=== PATIENT | male | born 1950 | race Caucasian/White ===

== ENCOUNTER 2018-02-20 10:22 | Emergency (ER) | payer OTHER ==
[~2018-02-20] VITALS: Ht 180.3 cm; Wt 79.4 kg
[~2018-02-20 10:22] MED LIST: ACTOS 30 MG TAB30 MG PO; AMBIEN 10 MG TA10 MG PO; ANDROGEL; CYMBALTA60 MG; CYTOMEL 25 MCG25 MCG; GLUCOPHAGE1000 MG PO; GLUCOTROL; HYDROCHLOROTHIA25 M1; LANTUS; LEVOTHROID; LISINOPRIL; NOVOLOG FL100 UNIT/M SC; PEGASYS180 MCG/1; PINDOLOL10 MG PO; REMERON15 MG PO; SYNTHROID125 MCG; VICTOZA0.6 MG/0.1; ZESTRIL40 MG PO; [UNRECOGNIZED DRUG - CODE]
[2018-02-20 11:44] LABS: ABSOLUTE NEUTROPHILS 7.8 thou/uL (1.4-8.2); BASOPHILS 0.8 % (0.0-2.0); EOSINOPHILS 1.1 % (0.0-3.0); HEMOGLOBIN 12.1 gm/dL (14.0-18.0); LYMPHOCYTES 21.7 % (24.0-44.0); MCH 35.2 pg (26.0-34.0); MCHC 34.6 g/dL (28.0-37.0); MCV 101.7 fL (80.0-100.0); MONOCYTES 10.2 % (1.0-8.0); PLATELET COUNT 247 thou/uL (150-400); POLYS 66.2 % (36.0-66.0); RBC 3.44 mil/uL (4.50-6.00); RDW 12.8 % (10.5-14.5); WBC 11.7 thou/uL (4.0-11.0)
[2018-02-20 11:50] LABS: CALCIUM 8.5 mg/dL (8.5-10.1); CREATININE 1.2 mg/dL (0.7-1.3); POTASSIUM 3.7 mmol/L (3.5-5.1)
[2018-02-20 11:56] LABS: TOTAL BILIRUBIN 0.8 mg/dL (<0.1-1.0); TOTAL PROTEIN 6.6 g/dL (6.4-8.2)
[2018-02-20] MEDS ORDERED: TRAMADOL 50 MG50 MG PO (11:57)
[2018-02-20] MEDS ORDERED: AUGMENTIN 500-1 EACH PO (11:57)
[2018-02-20 12:55] VITALS: BP 108/57
== END 2018-02-20 12:56 | disposition home or self-care (01) ==
LOC: ER 10:22
PROVIDERS: Emergency Medicine
DX: L03.116 Cellulitis of left lower limb (principal); D53.9 Nutritional anemia, unspecified; F32.9 Major depressive disorder, single episode, unspecified; E11.9 Type 2 diabetes mellitus without complications; Z88.6 Allergy status to analgesic agent; Z87.81 Personal history of (healed) traumatic fracture; Z88.8 Allergy status to other drugs, medicaments and biological substances; Z86.2 Personal history of diseases of the blood and blood-forming organs and certain disorders involving the immune mechanism; Z79.4 Long term (current) use of insulin; Z90.81 Acquired absence of spleen

== ENCOUNTER 2018-05-31 11:06 | Emergency (ER) | payer OTHER ==
[~2018-05-31] VITALS: Ht 180.3 cm; Wt 74.8 kg
[~2018-05-31 11:06] MED LIST changes: +AUGMENTIN 500-1 EACH PO; +TRAMADOL 50 MG50 MG PO
[2018-05-31] MEDS ORDERED: OXYCODONE HCL10 MG PO (11:51)
[2018-05-31 12:15] VITALS: BP 131/71
== END 2018-05-31 12:16 | disposition home or self-care (01) ==
LOC: ER 11:06
DX: G89.29 Other chronic pain (principal); M25.562 Pain in left knee; M25.561 Pain in right knee; M25.462 Effusion, left knee; M25.461 Effusion, right knee; F32.9 Major depressive disorder, single episode, unspecified; E11.9 Type 2 diabetes mellitus without complications; E89.0 Postprocedural hypothyroidism; F17.210 Nicotine dependence, cigarettes, uncomplicated; Z86.19 Personal history of other infectious and parasitic diseases; Z86.2 Personal history of diseases of the blood and blood-forming organs and certain disorders involving the immune mechanism; Z98.890 Other specified postprocedural states; Z88.6 Allergy status to analgesic agent; Z88.8 Allergy status to other drugs, medicaments and biological substances

== ENCOUNTER 2018-07-14 21:36 | Emergency (ER) | payer OTHER ==
[~2018-07-14] VITALS: Ht 180.3 cm; Wt 81.7 kg
[~2018-07-14 21:36] MED LIST changes: +OXYCODONE HCL10 MG PO
[2018-07-14] MEDS ORDERED: LEVEMIR SUBQ (22:18)
[2018-07-14] MEDS ORDERED: METFORMIN HCL500 MG PO (22:18)
[2018-07-14] MEDS ORDERED: CARDIZEM CD240 MG PO (22:19)
[2018-07-14] MEDS ORDERED: LIPITOR 20 MG T20 M1 PO (22:19)
[2018-07-14 23:16] LABS: ABSOLUTE NEUTROPHILS 8.8 thou/uL (1.4-8.2); BASOPHILS 1.1 % (0.0-2.0); EOSINOPHILS 1.6 % (0.0-3.0); HEMATOCRIT 32.3 % (42.0-52.0); HEMOGLOBIN 10.9 gm/dL (14.0-18.0); LYMPHOCYTES 11.7 % (24.0-44.0); MCH 32.8 pg (26.0-34.0); MCHC 33.6 g/dL (28.0-37.0); MCV 97.5 fL (80.0-100.0); MONOCYTES 9.6 % (1.0-8.0); PLATELET COUNT 424 thou/uL (150-400); RBC 3.32 mil/uL (4.50-6.00); WBC 11.6 thou/uL (4.0-11.0)
[2018-07-14 23:24] LABS: CALCIUM 8.9 mg/dL (8.5-10.1); CREATININE 0.8 mg/dL (0.7-1.3); POTASSIUM 3.7 mmol/L (3.5-5.1)
[2018-07-15 01:46] VITALS: BP 146/61
--- NOTE | 2018-07-16 13:33 | EKG ---
[address] [place] [address] ELECTROCARDIOGRAM REPORT Name: HAQHARRY OLMEDO Room #: [facility]P [facility] [id number] ������������������ Admission: 07/14/18 ������������������ Attend Phys: Discharge: 07/15/18 ������������������ Date of : 52 Report #: [id number] ����������������������������������������������������������������� [id number] THIS REPORT FOR: //name// [facility] ED Test Date: 2018-07-14 Test Time: 23:18:27 Pat Name: HARRY HAQ Department: Room: Gender: Solar Sales Advisor: JOANN : 1950 Requested By: Annalise Fall Order Number: [id number] MD: Anthony Jain Measurements Intervals [place] Rate: 68 P: 78 MO: 203 QRS: 70 QRSD: 105 T: 43 QT: 398 QTc: 424 Interpretive Statements Sinus rhythm Normal tracing Compared to ECG 08/06/2009 11:25:23 No significant changes Electronically Signed On 07-16-2018 13:33:44 CDT by Anthony Jain [email or web address] ��������������������������������������������� <ELECTRONICALLY SIGNED> ���������������������������������������� By: Anthony Jain MD, [facility] ��������������������������������������������� 07/16/18 1333 2318 17 Anthony Jain MD, FACC /EPI
== END 2018-07-15 01:51 | disposition home or self-care (01) ==
LOC: ER 21:36
PROVIDERS: Student in an Organized Health Care Education/Training Program
DX: R60.0 Localized edema (principal); F17.210 Nicotine dependence, cigarettes, uncomplicated; F32.9 Major depressive disorder, single episode, unspecified; E11.9 Type 2 diabetes mellitus without complications; Z88.8 Allergy status to other drugs, medicaments and biological substances; Z88.6 Allergy status to analgesic agent; Z90.81 Acquired absence of spleen; Z90.89 Acquired absence of other organs; Z86.2 Personal history of diseases of the blood and blood-forming organs and certain disorders involving the immune mechanism; Z79.4 Long term (current) use of insulin